=== PATIENT | male | born 1985 | race Caucasian/White ===

== ENCOUNTER → 2017-07-18 | Outpatient (REF) ==
[~2017-07-18] MED LIST: ACHD5005 PO; AMOX500C2 PO; CLAR-19 PO; GBPN100C PO; HYDR118S10 PO; IBP800T PO; METH4TAB PO; NAPR500T PO; OMEP20CA12 PO; PRD20T PO; TRAM-42 PO
--- NOTE | 2017-07-18 09:40 | Diagnostic Imaging Report ---
PA view of the chest. INDICATION: Employment-related exam. FINDINGS: The lungs are clear. The heart size is normal. No effusion or pneumothorax. Mediastinum and becky appear unremarkable. IMPRESSION: Unremarkable exam. Dictated by: Dictated on workstation # [id number]
== END | disposition home or self-care (01) ==
LOC: OCC 09:18
PROVIDERS: ATTEND Nurse Practitioner Family
CPT/HCPCS: 71010

== ENCOUNTER 2018-06-03 10:45 | Outpatient (RCR) | payer BC ==
[~2018-06-03 10:45] MED LIST changes: +NAPR-1071 PO; -NAPR500T PO
== END 2018-06-22 | disposition home or self-care (01) ==
LOC: LAB 10:45
PROVIDERS: ATTEND Urology
DX: Z30.8 Encounter for other contraceptive management (principal)
CPT/HCPCS: 89321

== ENCOUNTER 2019-07-20 13:30 | Emergency (ER) | payer SELFPAY ==
[~2019-07-20] VITALS: Ht 175.3 cm; Wt 111.4 kg
[2019-07-20 13:47] LABS: BASOPHILS % (AUTO) 0 % (0-10); EOSINOPHILS # (AUTO) 0.1 10^3/uL (0.0-0.3); EOSINOPHILS % (AUTO) 2 % (0-10); HEMATOCRIT 43 % (40-54); LYMPHOCYTES # (AUTO) 1.9 X 10^3 (1.0-4.0); LYMPHOCYTES % (AUTO) 22 % (12-44); MEAN CORPUSCULAR HEMOGLOBIN 30 PG (25-34); MEAN CORPUSCULAR HGB CONC 35 G/DL (32-36); MEAN CORPUSCULAR VOLUME 86 FL (80-99); MEAN PLATELET VOLUME 9.2 FL (7.4-10.4); MONOCYTES # (AUTO) 0.6 X 10^3 (0.0-1.0); MONOCYTES % (AUTO) 6 % (0-12); NEUTROPHILS # (AUTO) 6.1 X 10^3 (1.8-7.8); NEUTROPHILS % (AUTO) 70 % (42-75); PLATELET COUNT 214 10^3/uL (130-400); RED CELL DISTRIBUTION WIDTH 13.2 % (10.0-14.5); WHITE BLOOD COUNT 8.7 10^3/uL (4.3-11.0)
[2019-07-20] MEDS ORDERED: ASPIRIN 81 MG CHEW (CHILDREN'S ASA) PO ONE (14:00)
[2019-07-20 14:06] LABS: ALANINE AMINOTRANSFERASE 25 U/L (0-55); ALBUMIN 4.2 GM/DL (3.2-4.5); ALKALINE PHOSPHATASE 87 U/L (40-136); BILIRUBIN,TOTAL 0.3 MG/DL (0.1-1.0); BUN/CREATININE RATIO 18; CALCIUM 9.1 MG/DL (8.5-10.1); CARBON DIOXIDE 21 MMOL/L (21-32); CHLORIDE 108 MMOL/L (98-107); CREATININE SERUM 0.91 MG/DL (0.60-1.30); GFR ESTIMATED > 60; GLUCOSE 103 MG/DL (70-105); POTASSIUM 3.9 MMOL/L (3.6-5.0); SODIUM 139 MMOL/L (135-145); TOTAL PROTEIN 7.1 GM/DL (6.4-8.2)
--- NOTE | 2019-07-20 14:11 | Diagnostic Imaging Report ---
INDICATION: Left chest wall discomfort. TIME OF EXAM: 1:59 p.m. Correlation is made with prior chest from 07/18/2017. FINDINGS: The heart size is normal. The pulmonary vascularity is unremarkable. The lungs are clear. No infiltrate, effusion or pneumothorax is detected. IMPRESSION: No acute cardiopulmonary process is detected. Dictated by: Dictated on workstation # [id number]
--- NOTE | 2019-07-20 14:23 | ED Cardiac General ---
History of Present Illness General Chief Complaint: Chest Pain Stated Complaint: CHEST PAIN Nursing Triage Note: Pt amb to room #3 with c/o Lt sided chest wall discomfort. Pt reports discomfort began yesterday (07/19/19). Pt reports increase in discomfort upon twisting motion. Reports discomfort radiates to lt upper back. Denies cardiac hx but reports strong family hx. History of Present Illness Date Seen by Provider: Jul 20, 2019 Time Seen by Provider: 13:35 Initial Comments 33-year-old male presents after a 3 to 4-day history of left anterior chest wall with some radiation into his back. His mother did have multiple MIs before the age of 50. 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 and was recently started on an ubsd-dgr-dlzqzqg medicine for this, he is unable to tell me the exact needed. Timing/Duration: 2-3 days Severity: mild Location: substernal Prior CP/Workup: no prior chest pain NTG SL CERTIFIED PROCEDURAL CODER: No ASA po CERTIFIED PROCEDURAL CODER: No Associated Systoms: Denies Symptoms, Chest Pain; No Cough, No Diaphoresis, No Fever/Chills, No Headaches, No Loss of Appetite, No Malaise, No Nausea/Vomiting, No Rash, No Seizure, No Shortness of Air, No Syncope, No Weakness, No Other Allergies and Home Medications Allergies Coded Allergies: No Known Drug Allergies (Unverified , 08/26/12) Home Medications No Active Prescriptions or Reported Meds Patient Home Medication List Home Medication List Reviewed: Yes Review of Systems Review of Systems Constitutional: no symptoms reported, see HPI Respiratory: No Symptoms Reported, See HPI; Denies Cough Cardiovascular: No Symptoms Reported, See HPI Gastrointestinal: See HPI, Other (heartburn) All Other Systems Reviewed Negative Unless Noted: Yes Past Rmxvqwp-Qiogsx-Uuazsi Hx Past Med/Social Hx: Reviewed Nursing Past Med/Soc Hx Patient Social History Alcohol Use: Rarely Uses Number of Drinks Today: 0 Recreational Drug Use: No Smoking Status: Current Everyday Smoker Type Used: Cigarettes 2nd Hand Smoke Exposure: Yes Recent Foreign Travel: No Contact w/Someone Who Travel: No Recent Infectious Disease Expo: No Recent Hopitalizations: No Immunizations Up To Date Date of Influenza Vaccine: Aug 16, 2012 Seasonal Allergies Seasonal Allergies: No Past Medical History Surgeries: No Respiratory: Yes Chronic Bronchitis Cardiac: No Neurological: No Reproductive Disorders: No Sexually Transmitted Disease: No HIV/AIDS: No Gastrointestinal: Yes Ulcer Musculoskeletal: Yes Chronic Back Pain Endocrine: No Cancer: No Psychosocial: No Integumentary: No Blood Disorders: No Adverse Reaction/Blood Tranf: No Physical Exam Vital Signs Vital Signs - First Documented 07/20/19 13:31 Temp 36.3 Pulse 72 Resp 18 B/P (MAP) 147/78 (101) Pulse Ox 98 O2 Delivery Room Air Capillary Refill : Less Than 3 Seconds Height, Weight, BMI Height: 5'9" Weight: 220lbs. oz. 99.072199cb; 36.00 BMI Method:Stated General Appearance: No Apparent Distress, WD/WN HEENT: PERRL/EOMI, TMs Normal, Normal ENT Inspection, Pharynx Normal Neck: Full Range of Motion, Normal Inspection, Non Tender, Supple Respiratory: Lungs Clear, Normal Breath Sounds, Other (tenderness upper anterior chest wall, to palpation.) Cardiovascular: Regular Rate, Rhythm, No Murmur, Normal Peripheral Pulses Gastrointestinal: Normal Bowel Sounds, Non Tender, Soft Neurologic/Psychiatric: Alert, Oriented x3, No Motor/Sensory Deficits, Normal Mood/Affect Skin: Normal Color, Warm/Dry; No Diaphoresis Progress/Results/Core Measures Results/Orders Lab Results Laboratory Tests Test 07/20/19 13:40 Range/Units White Blood Count 8.7 4.3-11.0 10^3/uL Red Blood Count 5.05 4.35-5.85 10^6/uL Hemoglobin 15.0 13.3-17.7 G/DL Hematocrit 43 40-54 % Mean Corpuscular Volume 86 80-99 FL Mean Corpuscular Hemoglobin 30 25-34 PG Mean Corpuscular Hemoglobin Concent 35 32-36 G/DL Red Cell Distribution Width 13.2 10.0-14.5 % Platelet Count 214 130-400 10^3/uL Mean Platelet Volume 9.2 7.4-10.4 FL Neutrophils (%) (Auto) 70 42-75 % Lymphocytes (%) (Auto) 22 12-44 % Monocytes (%) (Auto) 6 0-12 % Eosinophils (%) (Auto) 2 0-10 % Basophils (%) (Auto) 0 0-10 % Neutrophils # (Auto) 6.1 1.8-7.8 X 10^3 Lymphocytes # (Auto) 1.9 1.0-4.0 X 10^3 Monocytes # (Auto) 0.6 0.0-1.0 X 10^3 Eosinophils # (Auto) 0.1 0.0-0.3 10^3/uL Basophils # (Auto) 0.0 0.0-0.1 10^3/uL Prothrombin Time 13.0 12.2-14.7 SEC INR Comment 1.0 0.8-1.4 Activated Partial Thromboplast Time 34 24-35 SEC Sodium Level 139 135-145 MMOL/L Potassium Level 3.9 3.6-5.0 MMOL/L Chloride Level 108 H 98-107 MMOL/L Carbon Dioxide Level 21 21-32 MMOL/L Anion Gap 10 5-14 MMOL/L Blood Urea Nitrogen 16 7-18 MG/DL Creatinine 0.91 0.60-1.30 MG/DL Estimat Glomerular Filtration Rate > 60 BUN/Creatinine Ratio 18 Glucose Level 103 70-105 MG/DL Calcium Level 9.1 8.5-10.1 MG/DL Corrected Calcium 8.9 8.5-10.1 MG/DL Magnesium Level 2.0 1.6-2.4 MG/DL Total Bilirubin 0.3 0.1-1.0 MG/DL Aspartate Amino Transf (AST/SGOT) 16 5-34 U/L Alanine Aminotransferase (ALT/SGPT) 25 0-55 U/L Alkaline Phosphatase 87 40-136 U/L Myoglobin 29.3 10.0-92.0 NG/ML Troponin I < 0.028 <0.028 NG/ML Total Protein 7.1 6.4-8.2 GM/DL Albumin 4.2 3.2-4.5 GM/DL My Orders Orders - ALEXUS PERSAUD TOBACCO SAMPLER Cbc With Automated Diff (07/20/19 13:36) Magnesium (07/20/19 13:36) Chest 1 View, Ap/Pa Only (07/20/19 13:36) Ekg Tracing (07/20/19 13:36) Cardiac Profile 1 (07/20/19 13:36) Comprehensive Metabolic Panel (07/20/19 13:36) Myoglobin Serum (07/20/19 13:36) Protime With Inr (07/20/19 13:36) Partial Thromboplastin Time (07/20/19 13:36) O2 (07/20/19 13:36) Monitor-Rhythm Ecg Trace Only (07/20/19 13:36) Ed Iv/Invasive Line Start (07/20/19 13:36) Aspirin Chewable Tablet (Baby Aspirin Ch (07/20/19 14:00) Medications Given in ED Current Medications Medications Dose Ordered Sig/Filiberto Route Start Time Stop Time Status Last Admin Dose Admin Aspirin 324 mg ONCE ONCE PO 07/20/19 14:00 07/20/19 14:01 DC 07/20/19 14:26 324 MG Vital Signs/I&O 07/20/19 07/20/19 07/20/19 13:31 13:32 15:01 Temp 36.3 Pulse 72 67 Resp 18 20 B/P (MAP) 147/78 (101) 121/74 Pulse Ox 98 95 O2 Delivery Room Air Room Air Room Air Blood Pressure Mean: 101 POS Progress Progress Note : Time: 13:35 Progress Note Patient seen and evaluated, will get EKG, labs, Chest x-ray. Aspirin 324 mg orally. 1415 reviewed lab results and chest x-ray along with EKG. No acute findings. 1440 patient reports symptoms have improved. Offered to do a GI cocktail he declined at this time. Will follow-up with his PCP. Discharge instructions and return precautions reviewed with him. All questions answered. Initial ECG Impression Date: Jul 20, 2019 Initial ECG Impression Time: 13:38 Initial ECG Rate: 69 Initial ECG Rhythm: Normal Sinus Initial ECG Intervals: Normal Initial ECG Intervals GA 160, QRSD 86, QT 380, QTc 407. [place] P 19, QRS 71, T 51. Initial ECG Impression: Normal Initial ECG Comparisson: No Previous ECG Available Comment Reviewed with Dr. Atkinson, concurred with interpretation. Diagnostic Imaging Diagonstic Imaging: Xray Plain Films/CT/US/NM/MRI: chest Comments NAME: GLENN PELAEZ Pedro [facility] REC#: [id number] PT STATUS: REG ER : 1985 PHYSICIAN: ALEXUS PERSAUD ADMIT DATE: 07/20/19/ER Draft POSDate of Exam:07/20/19 CHEST 1 VIEW, AP/PA ONLY INDICATION: Left chest wall discomfort. TIME OF EXAM: 1:59 p.m. Correlation is made with prior chest from 07/18/2017. FINDINGS: The heart size is normal. The pulmonary vascularity is unremarkable. The lungs are clear. No infiltrate, effusion or pneumothorax is detected. IMPRESSION: No acute cardiopulmonary process is detected. Dictated on workstation # [id number] Dict: 07/20/19 1408 Trans: 07/20/19 1411 [facility] [id number] Interpreted by: TWAN HERNDON MD Electronically signed by: Reviewed: Reviewed by Me Departure Impression Primary Impression: Chest wall pain Additional Impression: Gastroesophageal reflux disease Qualified Codes: K21.9 - Gastro-esophageal reflux disease without esophagitis Disposition: HOME, SELF-CARE Condition: Stable Departure-Patient Inst. Decision time for Depature: 14:40 Referrals: [facility] [place] Primary Care Physician Patient Instructions: Chest Pain That Is Not Caused by the Heart (DC), Acid Reflux (Gastroesophageal Reflux Disease), Adult (DC) Add. Discharge Instructions: Continue taking your medication for heartburn. Schedule follow-up with your primary care provider. Return to the emergency department for new, urgent health care needs. All discharge instructions reviewed with patient and/or family. Voiced understanding. Scripts No Active Prescriptions or Reported Meds ALEXUS PERSAUD Jul 20, 2019 14:23 POS
[2019-07-20 15:01] VITALS: BP 121/74
== END 2019-07-20 15:01 | disposition home or self-care (01) ==
LOC: EDUNIT# 13:30 → ER 13:31
DX: R07.89 Other chest pain (principal); K21.9 Gastro-esophageal reflux disease without esophagitis; F17.210 Nicotine dependence, cigarettes, uncomplicated
CPT/HCPCS: 36415; 71045; 80053; 83735; 83874; 84484; 85025; 85610; 85730; 93005; 93041

== ENCOUNTER 2022-10-06 16:47 | Emergency (ER) | payer SELFPAY ==
[~2022-10-06] VITALS: Ht 172.7 cm; Wt 108.8 kg
--- NOTE | 2022-10-06 17:31 | ED Back Pain ---
General Chief Complaint: Back Problems Stated Complaint: SEVERE RIGHT LOWER BACK PAIN Nursing Triage Note: PT AMB TO RM 7 WITH COMPLAINT OF RIGHT SIDE BACK PAIN. STATES HAS BEEN GOING ON FOR A WEEK. HAS BEEN TO CHIROPRACTOR AND HAD INJECTIONS. STATES HAS GOTTEN NO RELIEF WITH PAIN MEDICATIONS AND MUSCLE RELAXERS. History of Present Illness Date Seen by Provider: Oct 06, 2022 Time Seen by Provider: 16:55 Initial Comments 36-year-old male presents for a 1 to 2-week history of low back pain that is radiating into his right leg. He has had multiple medications from [facility] including oral steroids, steroid injections, muscle relaxants and anti- inflammatories. He is currently on Relafen 500 mg 3 times a day Parafon forte 3 times daily and baclofen 3 times a day. He is not taking any Tylenol. He was able to work today but pain was extreme. He reports extreme discomfort last night and inability to sleep. He has had no injuries to his back. He has tried heat and ice with no improvement in his pain. He has had no previous spine surgeries he denies any bowel or bladder incontinence or retention. Location: Lumbar Spine, Paraspinous Muscles (right) Timing/Duration: 1 Week Severity: Moderate Pain/Injury Location: Back Radiation: Buttocks, Upper Legs Method of Injury: Unknown Associated Symptoms: muscle spasms; No numbness in legs/feet, No tingling in legs/feet, No sensory/motor loss; lower back pain; No loss of bladder control, No loss of bowel control Allergies and Home Medications Allergies Coded Allergies: No Known Drug Allergies (Unverified , 08/26/12) Patient Home Medication List Home Medication List Reviewed: Yes Cyclobenzaprine HCl (Cyclobenzaprine HCl) 10 Mg Tablet, 10 MG PO Q8H PRN for SPASMS Prescribed by: ALEXUS PERSAUD on 10/06/221807 Tramadol HCl (Tramadol HCl) 50 Mg Tablet, 50 MG PO Q6H PRN for PAIN Prescribed by: ALEXUS PERSAUD on 10/06/221808 Review of Systems Constitutional: no symptoms reported, see HPI Musculoskeletal: see HPI, back pain, muscle pain, muscle twitching All Other Systems Reviewed Negative Unless Noted: Yes Past Ufpnjyb-Yvfzfb-Zzjytp Hx Patient Social History Tobacco Use?: Yes Tobacco type used: Cigarettes Smoking Status: Current Everyday Smoker Use of E-Cig and/or Vaping dev: No Substance use?: No Alcohol Use?: No Pt feels they are or have been: No Seasonal Allergies Seasonal Allergies: No Past Medical History Surgeries: No Respiratory: Yes Chronic Bronchitis Cardiac: No Neurological: No Reproductive Disorders: No Sexually Transmitted Disease: No HIV/AIDS: No Gastrointestinal: Yes Ulcer Musculoskeletal: Yes Chronic Back Pain Endocrine: No Cancer: No Psychosocial: No Integumentary: No Blood Disorders: No Adverse Reaction/Blood Tranf: No Family Medical History Reviewed Nursing Family Hx Physical Exam Vital Signs Vital Signs - First Documented 10/06/22 16:51 Pulse 88 Resp 16 B/P (MAP) 142/93 (109) Pulse Ox 99 O2 Delivery Room Air Capillary Refill : Less Than 3 Seconds Height, Weight, BMI Height: 5'9" Weight: 220lbs. oz. 99.109053cy; 36.00 BMI Method:Stated General Appearance: No Apparent Distress, WD/WN Neck: Full Range of Motion, Normal Inspection, Non Tender, Supple Cardiovascular: Regular Rate, Rhythm, No Edema, No Murmur, Normal Peripheral Pulses Respiratory: Chest Non Tender, Lungs Clear Gastrointestinal: Normal Bowel Sounds, Non Tender, Soft Back: Normal Inspection, Decreased Range of Motion (full flex, pain with ext. ), Muscle Spasm, Vertebral Tenderness (Lower Lumbar, Power V/V L4-S1, ambulates with steady gait, full power toe and heal walking. + SLR on Right, - on Left. ) Neurologic/Psychiatric: Alert, Oriented x3, No Motor/Sensory Deficits, Normal Mood/Affect Progress/Results/Core Measures Results/Orders My Orders Orders - ALEXUS PERSAUD Tramadol Tablet (Ultram Tablet) (10/06/22 17:22) Vital Signs/I&O 10/06/22 16:51 Pulse 88 Resp 16 B/P (MAP) 142/93 (109) Pulse Ox 99 O2 Delivery Room Air Blood Pressure Mean: 109 Departure Impression Primary Impression: Lumbar radiculopathy Additional Impression: Lumbar spine pain Disposition: 01 HOME, SELF-CARE Condition: Stable Departure-Patient Inst. Decision time for Depature: 17:50 Referrals: [facility] (PCP/Family) Primary Care Physician Patient Instructions: Low Back Pain (DC), Muscle Strain (DC) Add. Discharge Instructions: Take Tylenol 1000 mg every 8 hours. Continue to take your Relafen and your Parafon forte. Discontinue the baclofen. Use the Flexeril 1 tablet every 8 hours for muscle spasms. Alternate heat and ice to your low back. Apply [place] balm to your low back and lateral leg for pain. Lay on the ground with your legs elevated on the couch. Follow-up with your primary care provider to consider MRI or physical therapy. Return to the emergency department for new, urgent healthcare needs. All discharge instructions reviewed with patient and/or family. Voiced understanding. Scripts Tramadol HCl (Tramadol HCl) 50 Mg Tablet 50 MG PO Q6H PRN for PAIN, #20 TAB 0 Refills Prov: ALEXUS PERSAUD 10/06/22 Cyclobenzaprine HCl (Cyclobenzaprine HCl) 10 Mg Tablet 10 MG PO Q8H PRN for SPASMS, #15 TAB 0 Refills Prov: ALEXUS PERSAUD 10/06/22 Copy Copies To 1: CRICKET VANCE AMY ARNP Oct 06, 2022 17:31
[2022-10-06] MEDS ORDERED: CYCL10TA25 PO (18:08)
[2022-10-06] MEDS ORDERED: TRM50T PO (18:08)
[2022-10-06 18:14] VITALS: BP 130/84
== END 2022-10-06 18:14 | disposition home or self-care (01) ==
LOC: EDUNIT# 16:47 → ER 16:49
DX: M54.16 Radiculopathy, lumbar region (principal); F17.210 Nicotine dependence, cigarettes, uncomplicated
CPT/HCPCS: 99283